=== PATIENT | male | born 1940 | race Caucasian/White ===

== ENCOUNTER 2023-07-14 22:32 | Inpatient (IN) | payer MEDICARE, BC ==
[2023-07-14 23:50] LABS: #Eosinphils 0.2 thou/uL (0.0-0.7); #Monocytes 0.5 thou/uL (0.11-0.59); #Neutrophils 6.8 thou/uL (1.40-6.50); %Basophils 0.5 % (0.0-1.0); %Eosinophils 2.2 % (0.0-10.0); %Lymphocytes 12.8 % (21.0-51.0); %Monocytes 5.9 % (0.0-10.0); %Neutrophils 78.3 % (42.0-75.0); Hematocrit 30.2 % (42.0-52.0); Hemoglobin 9.8 g/dL (14.0-18.0); Mean Corpuscular HGB CONC 32.5 g/dL (32.0-36.0); Mean Corpuscular Hemoglobin 31.2 pg (27.0-31.0); Mean Corpuscular Volume 96.2 fl (78.0-98.0); Mean Platelet Volume 10.3 fL (7.4-10.4); Platelet Count 175 10x3/uL (130-400); RBC Distribution Width 14.1 % (11.5-14.5); Red Blood Cell (RBC) Count 3.14 mill/uL (4.70-6.10); White Blood Cell (WBC) Count 8.7 10x3/uL (4.8-10.8)
[2023-07-14 23:59] LABS: Clarity Bloody (Clear); Glucose, Urine (Dipstick) Unable to Interpret mg/dL (Negative); Ketone, Urine Unable to Interpret mg/dL (Negative); Leukocyte Unable to Interpret Leu/uL (Negative); Nitrite Unable to Interpret (Negative); Protein, Urine (Dipstick) Unable to Interpret mg/dL (Neg-Trace); Urobilinogen UNABLE TO INTERPRET mg/dL (Less than 2); pH, Urine 7.4 (5.0-9.0)
[2023-07-15] LABS: Bacteria/HPF Rare-Few HPF (None Seen); Bilirubin Unable to Interpret (Negative); Blood, Urine Unable to Interpret (Negative); CAUTI Indications for Culture Acute Hematuria; RBC/HPF Greater than 50 HPF (0-3); Squamous Epithelial 0-3 HPF (0-3); WBC/HPF 0-3 HPF (0-3)
[2023-07-15 00:01] LABS: Urine Culture Reflex No No
[2023-07-15 00:13] LABS: ALT (SGPT) Less than 7 U/L (8-55); AST (SGOT) 13 U/L (5-34); Albumin 3.8 g/dL (3.4-4.8); Alkaline Phosphatase 258 U/L (40-110); Anion Gap 16 mmol/L (10-20); BUN (Urea Nitrogen) 42 mg/dL (8.4-25.7); Bilirubin, Total 0.5 mg/dL (0.2-1.2); Calc. Creatinine Clearance 0 mL/min (70-130); Calcium 8.3 mg/dL (7.8-10.44); Carbon Dioxide 24 mmol/L (23-31); Chloride 103 mmol/L (98-107); Estimated GFR 26; Glucose 117 mg/dL (83-110); Potassium 4.3 mmol/L (3.5-5.1); Protein, Total 6.8 g/dL (5.8-8.1); Sodium 139 mmol/L (136-145)
[2023-07-15] MEDS ORDERED: Morphine 2 MG/ML VIAL ONE (03:54)
[2023-07-15] MEDS ORDERED: Acetaminophen 650 MG Suppository PR PRN (04:37)
[2023-07-15] MEDS ORDERED: Ondansetron ODT 4 MG TAB PO PRN ×2 (04:37→05:37)
[2023-07-15] MEDS ORDERED: Acetaminophen 325 MG TAB PO PRN (04:37)
[2023-07-15 04:43] VITALS: BMI 24.3
[2023-07-15] MEDS ORDERED: hydrOXYzine 25 MG TAB PO PRN (05:37)
[2023-07-15] MEDS ORDERED: Mag-Al Plus 1200 MG/1200 MG/120 MG/30 ML UDCUP PO PRN (05:38)
[2023-07-15] MEDS ORDERED: Potassium Bicarbonate/Cit Ac 20 MEQ TAB ONE (08:27)
[2023-07-15] MEDS: Potassium Bicarbonate/Cit Ac 20 MEQ TAB PO SCH (08:39)
[2023-07-15] MEDS ORDERED: POTASSIUM CHLORIDE PO SCH (09:00)
[2023-07-15] MEDS ORDERED: Sertraline 100 MG TAB ONE (09:21)
[2023-07-15] MEDS ORDERED: Acetaminophen 325 MG TAB ONE (09:21)
[2023-07-15] MEDS: Sertraline 100 MG TAB PO SCH (09:31)
[2023-07-15] MEDS: Floranex 1 GM Packet PO SCH (09:40)
[2023-07-15] MEDS: Bumetanide 1 MG TAB PO SCH ×2 (09:40→21:21)
[2023-07-15] MEDS ORDERED: Lidocaine Jelly 2% Urojet 10 ML ONE ×2 (11:51)
[2023-07-15] MEDS: traMADol HCl 50 MG TAB PO PRN (11:57)
[2023-07-15 16:38] LABS: Hematocrit 26.2 % (42.0-52.0); Hemoglobin 8.5 g/dL (14.0-18.0); Platelet Count 156 10x3/uL (130-400)
[2023-07-15] MEDS ORDERED: Lisinopril 20 MG TAB PO SCH (21:00)
[2023-07-15] MEDS: Gabapentin 300 MG CAP PO SCH (21:19)
[2023-07-15] MEDS: ALPRAZolam 0.25 MG TAB PO SCH (21:21)
[2023-07-16 06:04] LABS: #Eosinphils 0.1 thou/uL (0.0-0.7); #Monocytes 0.7 thou/uL (0.11-0.59); #Neutrophils 5.9 thou/uL (1.40-6.50); %Basophils 0.2 % (0.0-1.0); %Eosinophils 1.1 % (0.0-10.0); %Lymphocytes 16.8 % (21.0-51.0); %Monocytes 8.5 % (0.0-10.0); %Neutrophils 72.9 % (42.0-75.0); Hematocrit 25.6 % (42.0-52.0); Hemoglobin 8.2 g/dL (14.0-18.0); Mean Corpuscular Hemoglobin 30.4 pg (27.0-31.0); Mean Corpuscular Volume 94.8 fl (78.0-98.0); Mean Platelet Volume 10.8 fL (7.4-10.4); Platelet Count 173 10x3/uL (130-400); RBC Distribution Width 14.1 % (11.5-14.5); White Blood Cell (WBC) Count 8.1 10x3/uL (4.8-10.8)
[2023-07-16 06:34] LABS: ALT (SGPT) Less than 7 U/L (8-55); AST (SGOT) 12 U/L (5-34); Albumin 3.2 g/dL (3.4-4.8); Alkaline Phosphatase 189 U/L (40-110); Anion Gap 13 mmol/L (10-20); BUN (Urea Nitrogen) 43 mg/dL (8.4-25.7); Bilirubin, Total 0.5 mg/dL (0.2-1.2); Calc. Creatinine Clearance 24 mL/min (70-130); Calcium 7.9 mg/dL (7.8-10.44); Carbon Dioxide 26 mmol/L (23-31); Chloride 101 mmol/L (98-107); Estimated GFR 24; Globulin 2.7 g/dL (2.4-3.5); Glucose 107 mg/dL (83-110); Protein, Total 5.9 g/dL (5.8-8.1); Sodium 136 mmol/L (136-145)
[2023-07-16] MEDS ORDERED: Lactated Ringer's 1,000 ML IV SCH (07:45)
[2023-07-16] MEDS ORDERED: Metoprolol Tartrate 25 MG TAB PO SCH ×3 (09:00→21:00)
[2023-07-16] MEDS: Floranex 1 GM Packet PO SCH ×2 (09:37→10:34)
[2023-07-16] MEDS: Sertraline 100 MG TAB PO SCH (09:37)
[2023-07-16] MEDS: Bumetanide 1 MG TAB PO SCH ×2 (09:38→21:37)
[2023-07-16] MEDS ORDERED: Saccharomyces boulardii 250 MG CAP PO SCH (10:30)
[2023-07-16] MEDS ORDERED: Potassium Chloride 20 MEQ TAB PO SCH (10:30)
[2023-07-16] MEDS: Potassium Bicarbonate/Cit Ac 20 MEQ TAB PO SCH (10:33)
[2023-07-16] MEDS ORDERED: Famotidine 20 MG TAB PO PRN (11:13)
[2023-07-16] MEDS ORDERED: Lidocaine Jelly 2% Urojet 10 ML ONE (12:18)
[2023-07-16] MEDS ORDERED: Ciprofloxacin 500 MG TAB PO SCH (13:30)
[2023-07-16] MEDS: Gabapentin 300 MG CAP PO SCH (21:37)
[2023-07-16] MEDS: ALPRAZolam 0.25 MG TAB PO SCH (21:37)
[2023-07-16] MEDS: Metoprolol Tartrate 50 MG TAB PO SCH (21:37)
[2023-07-17 08:49] LABS: #Eosinphils 0.1 thou/uL (0.0-0.7); #Monocytes 0.7 thou/uL (0.11-0.59); #Neutrophils 7.1 thou/uL (1.40-6.50); %Basophils 0.2 % (0.0-1.0); %Eosinophils 0.7 % (0.0-10.0); %Lymphocytes 12.9 % (21.0-51.0); %Monocytes 7.5 % (0.0-10.0); %Neutrophils 78.1 % (42.0-75.0); Hematocrit 26.7 % (42.0-52.0); Hemoglobin 8.6 g/dL (14.0-18.0); Mean Corpuscular HGB CONC 32.2 g/dL (32.0-36.0); Mean Corpuscular Volume 96.4 fl (78.0-98.0); Mean Platelet Volume 10.5 fL (7.4-10.4); Platelet Count 176 10x3/uL (130-400); RBC Distribution Width 13.5 % (11.5-14.5); Red Blood Cell (RBC) Count 2.77 mill/uL (4.70-6.10); White Blood Cell (WBC) Count 9.1 10x3/uL (4.8-10.8)
[2023-07-17 09:10] LABS: ALT (SGPT) Less than 7 U/L (8-55); AST (SGOT) 15 U/L (5-34); Albumin 3.1 g/dL (3.4-4.8); Alkaline Phosphatase 171 U/L (40-110); Anion Gap 15 mmol/L (10-20); BUN (Urea Nitrogen) 41 mg/dL (8.4-25.7); Bilirubin, Total 0.6 mg/dL (0.2-1.2); Calc. Creatinine Clearance 24 mL/min (70-130); Carbon Dioxide 25 mmol/L (23-31); Chloride 101 mmol/L (98-107); Estimated GFR 25; Glucose 120 mg/dL (83-110); Protein, Total 6.1 g/dL (5.8-8.1); Sodium 137 mmol/L (136-145)
[2023-07-17] MEDS: Potassium Chloride 20 MEQ TAB PO SCH (09:20)
[2023-07-17] MEDS: Metoprolol Tartrate 50 MG TAB PO SCH (09:21)
[2023-07-17] MEDS: Sertraline 100 MG TAB PO SCH (09:21)
[2023-07-17] MEDS: Bumetanide 1 MG TAB PO SCH ×2 (09:21→21:04)
[2023-07-17] MEDS: Saccharomyces boulardii 250 MG CAP PO SCH (09:21)
[2023-07-17] MEDS ORDERED: Metoprolol Tartrate 25 MG TAB PO SCH ×2 (13:06)
[2023-07-17] MEDS: Ciprofloxacin 500 MG TAB PO SCH (13:19)
[2023-07-17] MEDS: traMADol HCl 50 MG TAB PO PRN ×2 (13:20→23:57)
[2023-07-17] MEDS ORDERED: Lidocaine Jelly 2% Urojet 10 ML ONE (17:58)
[2023-07-17] MEDS: Metoprolol Tartrate 25 MG TAB PO SCH (21:04)
[2023-07-17] MEDS: ALPRAZolam 0.25 MG TAB PO SCH (21:04)
[2023-07-17] MEDS: Gabapentin 300 MG CAP PO SCH (21:04)
[2023-07-18] MEDS: traMADol HCl 50 MG TAB PO PRN ×2 (06:20→14:07)
[2023-07-18 06:30] LABS: ALT (SGPT) Less than 7 U/L (8-55); AST (SGOT) 15 U/L (5-34); Albumin 3.1 g/dL (3.4-4.8); Alkaline Phosphatase 150 U/L (40-110); Anion Gap 14 mmol/L (10-20); BUN (Urea Nitrogen) 47 mg/dL (8.4-25.7); Bilirubin, Total 0.4 mg/dL (0.2-1.2); Calc. Creatinine Clearance 23 mL/min (70-130); Calcium 7.8 mg/dL (7.8-10.44); Carbon Dioxide 26 mmol/L (23-31); Chloride 98 mmol/L (98-107); Estimated GFR 23; Glucose 108 mg/dL (83-110); Potassium 3.8 mmol/L (3.5-5.1); Protein, Total 6.1 g/dL (5.8-8.1); Sodium 134 mmol/L (136-145)
[2023-07-18 07:20] LABS: #Monocytes 0.8 thou/uL (0.11-0.59); %Basophils 0.1 % (0.0-1.0); %Eosinophils 0.1 % (0.0-10.0); %Lymphocytes 9.2 % (21.0-51.0); %Monocytes 8.1 % (0.0-10.0); %Neutrophils 82.1 % (42.0-75.0); Hematocrit 24.4 % (42.0-52.0); Mean Corpuscular HGB CONC 32.8 g/dL (32.0-36.0); Mean Corpuscular Hemoglobin 31.6 pg (27.0-31.0); Mean Corpuscular Volume 96.4 fl (78.0-98.0); Platelet Count 187 10x3/uL (130-400); RBC Distribution Width 13.7 % (11.5-14.5); Red Blood Cell (RBC) Count 2.53 mill/uL (4.70-6.10); White Blood Cell (WBC) Count 9.7 10x3/uL (4.8-10.8)
[2023-07-18] MEDS: Saccharomyces boulardii 250 MG CAP PO SCH (09:00)
[2023-07-18] MEDS: Bumetanide 1 MG TAB PO SCH (09:00)
[2023-07-18] MEDS: Metoprolol Tartrate 25 MG TAB PO SCH (09:01)
[2023-07-18] MEDS: Potassium Chloride 20 MEQ TAB PO SCH (09:01)
[2023-07-18] MEDS: Sertraline 100 MG TAB PO SCH (09:01)
[2023-07-18 12:38] VITALS: BP 129/91; TEMP 98.1
[2023-07-18] MEDS: Ciprofloxacin 500 MG TAB PO SCH (14:07)
== END 2023-07-18 18:23 | DRG 687 ==
LOC: ERS 22:32 → ERHOLD 07-15 03:43 → T4-A 07-15 11:08 → OBSVTOIN 07-17 10:08
PROVIDERS: ADMIT Student in an Organized Health Care Education/Training Program; ATTEND Student in an Organized Health Care Education/Training Program
PROC: 0T9B70Z Drainage of Bladder with Drainage Device, Via Natural or Artificial Opening (ICD-10-PCS; principal; 2023-07-17)
DX: C67.9 Malignant neoplasm of bladder, unspecified (principal); N17.9 Acute kidney failure, unspecified; N13.9 Obstructive and reflux uropathy, unspecified; N18.9 Chronic kidney disease, unspecified; D63.1 Anemia in chronic kidney disease; I48.91 Unspecified atrial fibrillation; I12.9 Hypertensive chronic kidney disease with stage 1 through stage 4 chronic kidney disease, or unspecified chronic kidney disease; G47.00 Insomnia, unspecified; F41.9 Anxiety disorder, unspecified; F32.A Depression, unspecified; Z79.899 Other long term (current) drug therapy; Z82.49 Family history of ischemic heart disease and other diseases of the circulatory system; Z98.49 Cataract extraction status, unspecified eye; Z98.890 Other specified postprocedural states; Z87.891 Personal history of nicotine dependence; R31.0 Gross hematuria
CPT/HCPCS: 36415; 74176; 80053; 81001; 85014; 85018; 85025; 85049; 87086; 93005; 96374; G0378; J2001; J2272; J7120